=== PATIENT | male | born 1950 | race Caucasian/White ===

== ENCOUNTER 2017-07-11 05:35 | Emergency (ER) | payer OTHER ==
[2017-07-11 06:09] LABS: #Lymphocytes 0.9 thou/uL (1.20-3.40); #Monocytes 1.5 thou/uL (0.11-0.59); %Basophils 0.1 % (0.0-1.0); %Eosinophils 0.3 % (0.0-10.0); %Lymphocytes 6.6 % (21.0-51.0); Hematocrit 41.7 % (42.0-52.0); Mean Platelet Volume 5.7 fL (7.4-10.4); Red Blood Cell (RBC) Count 4.38 mill/uL (4.70-6.10); White Blood Cell (WBC) Count 13.4 thou/uL (4.8-10.8)
[2017-07-11 06:22] LABS: ALT (SGPT) 28 U/L (8-55); AST (SGOT) 21 U/L (5-34); Alkaline Phosphatase 82 U/L (40-150); Anion Gap 15 mmol/L (10-20); BUN (Urea Nitrogen) 20 mg/dL (8.4-25.7); Bilirubin, Total 0.6 mg/dL (0.2-1.2); Calc. Creatinine Clearance 0 mL/min (70-130); Calcium 9.9 mg/dL (7.8-10.44); Carbon Dioxide 25 mmol/L (23-31); Chloride 95 mmol/L (98-107); Estimated GFR-MDRD 73; Globulin 4.8 g/dL (2.4-3.5); Protein, Total 8.5 g/dL (5.8-8.1)
[2017-07-11 06:24] LABS: Bilirubin Negative (Negative); Blood, Urine Moderate (Negative); Glucose, Urine (Dipstick) >=1000 mg/dL (Negative); Ketone, Urine 15 mg/dL (Negative); Nitrite Negative (Negative); Protein, Urine (Dipstick) 100 mg/dL (Neg-Trace)
[2017-07-11] MEDS ORDERED: Acetaminophen 500 MG TAB ONE (06:44)
[2017-07-11 07:06] LABS: Bacteria/HPF None Seen HPF (None Seen); Hyaline Casts/LPF 0-3 HYALINE CAST LPF (0-3 Hyaline); Squamous Epithelial 0-3 HPF (0-3)
[2017-07-11] MEDS ORDERED: Lidocaine 1% PF 5 ML VIAL ONE ×2 (07:31→07:48)
[2017-07-11] MEDS ORDERED: Ondansetron HCl/PF 4 MG/2 ML Vial ONE (07:36)
[2017-07-11] MEDS ORDERED: Methocarbamol 1 GM in Sodium Chloride 0.9% 250 ML 250 ML IVPB ONE (07:45)
[2017-07-11] MEDS ORDERED: Dexamethasone 4 mg/ml Vial ONE (08:22)
[2017-07-11] MEDS ORDERED: cefTRIAXone\\ROCEPHIN 2 GM VIAL ONE (08:22)
[2017-07-11 08:54] LABS: BF Reference Range Comment Note:
[2017-07-11] MEDS ORDERED: Lidocaine 1% (PF) 30 ML VIAL ONE (08:54)
[2017-07-11] MEDS ORDERED: Lorazepam 2 MG/ML VIAL ONE (09:07)
[2017-07-11 09:15] LABS: BF Color Yellow; RBC Count-Automated 61000 /cumm
[2017-07-11 10:08] LABS: Number Cells Counted-Fluids 100
[2017-07-11 10:10] LABS: CSF, Glucose 129 mg/dl (40-70)
--- NOTE | 2017-07-11 11:29 | RAD ---
AP VIEW CHEST: HISTORY: Dyspnea. FINDINGS: AP view chest demonstrates the lungs to be well aerated. No evidence of active intrathoracic diseas e is seen. No evidence of effusions, pneumonia, or pneumothorax seen. IMPRESSION: Unremarkable AP view chest. POS: [facility]
--- NOTE | 2017-07-11 11:37 | RAD ---
FOUR VIEWS RIGHT KNEE: HISTORY: Right knee pain. FINDINGS: AP, lateral, and both oblique views of the right knee were obtained. There is a suprapatellar joint effusion. Vascular calcifications are seen in the distal right superficial femoral artery. The right knee is unremarkable. No evidence of right knee fractures, subluxations, or bony lesions seen. IMPRESSION: Suprapatellar joint effusion. POS: [facility]
--- NOTE | 2017-07-11 16:01 | CT ---
PRELIMINARY REPORT/[facility]/EMERGENCY AFTER HOURS PROCEDURE: EXAM: CT Cervical Spine Without Intravenous Contrast CLINICAL HISTORY: 66 years old, male; Pain; Neck pain; Additional info: M66 presents w/ neck pain x10 days. Pt was see n in [facility] and by pcp and both gave pain shots and sent him home. Pt has had right knee swelling an d pain since yesterday and pt has had confusion for the past day. Pt denies any dysuria or any other urinary symptoms. Pt denies falls before neck pain started. Pt reports MALAGON but denies photophobia TECHNIQUE: Axial computed tomography images of the cervical spine without intravenous contrast. All CT scans at this facility use one or more dose reduction techniques, viz.: automated exposure control; ma/kV adjustment per patient size (including targeted exams where dose is matched to indication; i.e. head ); or iterative reconstruction technique. Coronal and sagittal reformatted images were created and reviewed. COMPARISON: No relevant prior studies available. FINDINGS: On axial CT images, no definite acute fracture is visible. Sagittal and coronal reconstructions show no fracture or subluxation. There is partial fusion of the C2 and C3 vertebral bodies. Moderate to severe degenerative disc changes and facet joint arthritis at several levels. No definite/significant focal disc herniation by CT, MRI could be more sensitive if clinically indic ated. IMPRESSION: No definite acute fracture or subluxation by CT. Other findings discussed above. Thank you for allowing us to participate in the care of your patient. Dictated and Authenticated by: Abe Sullivan MD 07/11/2017 8:01 AM Central Time ([place] \T\ [place]) FINAL REPORT CT CERVICAL SPINE: Final report. Preliminary exam was performed by [facility]. HISTORY: A 66-year-old with neck pain which has been ongoing for 10 days. The patient presents to the emerge ncy room for emergency after-hour evaluation. 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 Multilevel cervical degenerative change is seen in the midcervical spine. No evidence of acute cervical spine fracture is seen. I concur with the dictation from [facility]. Calcifications are noted in the carotid arterie s. Multilevel changes of spondylosis seen with disk-osteophyte complexes and neural foraminal narro wing at C4-5, C5-6, and C6-7. POS: [facility]
--- NOTE | 2017-07-11 16:04 | CT ---
PRELIMINARY REPORT/[facility]/EMERGENCY AFTER HOURS PROCEDURE: EXAM: CT Head Without Intravenous Contrast CLINICAL HISTORY: 66 years old, male; Pain; Other: Neck pain; Additional info: M66 presents w/ neck pain x10 days. Pt was seen in [facility] and by pcp and both gave pain shots and sent him home. Pt has had right knee swel ling and pain since yesterday and pt has had confusion for the past day. Pt denies any dysuria or an y other urinary symptoms. Pt denies falls before neck pain started. Pt reports MALAGON but denies photoph obia TECHNIQUE: Axial computed tomography images of the head/brain without intravenous contrast. COMPARISON: No relevant prior studies available. FINDINGS: No definite or depressed skull fracture. Included paranasal sinuses are essentially clear. No acute intracranial hemorrhage or mass effect. Ventricle size is normal for age. No definite acute infarct by CT. IMPRESSION: No acute intracranial bleed or mass effect. Thank you for allowing us to participate in the care of your patient. Dictated and Authenticated by: Abe Sullivan MD 07/11/2017 7:48 AM Central Time ([place] \T\ [place]) FINAL REPORT CT BRAIN: HISTORY: Fever. FINDINGS: Noncontrast-enhanced CT images of brain obtained. Final report. Preliminary exam was performed by [facility]. Noncontrast-enhanced CT images of the brain were obtained. The brain is unremarkable. No evidence of intracranial masses, hemorrhages, strokes, or contusions seen. Ventricles are normal size. IMPRESSION: Normal CT brain. POS: [facility]
== END 2017-07-11 14:12 ==
LOC: ERS 05:35
DX: M00.9 Pyogenic arthritis, unspecified (principal); E11.9 Type 2 diabetes mellitus without complications; I10 Essential (primary) hypertension; F43.10 Post-traumatic stress disorder, unspecified; Z79.82 Long term (current) use of aspirin; Z79.51 Long term (current) use of inhaled steroids; Z79.84 Long term (current) use of oral hypoglycemic drugs; Z79.899 Other long term (current) drug therapy
CPT/HCPCS: 20610; 36415; 62270; 70450; 71010; 72125; 80053; 81003; 81015; 82945; 83605; 84157; 85025; 85060; 86140; 87040; 87070; 87205; 89051; 89060; 93005; 96361; 96365; 96366; 96367; 96375; 96376; J0696; J1100; J2001; J2060; J2270; J2405; J2800; J3370; J7050